=== PATIENT | male | born 1980 | race Two or more races ===

== ENCOUNTER 2025-04-20 00:58 | Emergency (ER) | payer MEDICAID, SELFPAY ==
[2025-04-20 00:59] VITALS: BMI 28.7
--- NOTE | 2025-04-20 01:05 | EKG_ITS ---
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
[2025-04-20 01:22] VITALS: BP 148/82; PULSE 65; RESP 22; TEMP 36.3; O2SAT 96
--- NOTE | 2025-04-20 01:51 | EDNOTE_ITS ---
ED Abdominal Pain RME/HPI General Chief Complaint: Abdominal Pain Stated complaint: I THINK I HAVE HEARTBURN Time seen by provider: 04/20/25 01:55 Arrival date/time: 04/20/25 00:58 RME / HPI RME / HPI narrative: See MDM for Dr. Mccall's HPI Documentation. Related Data Allergies Allergy/AdvReac Type Severity Reaction Status Date / Time No Known Allergies Allergy Mild Uncoded 10/04/07 20:37 Review of Systems Review of Systems Systems Reviewed: All systems reviewed, normal except as documented Past Medical History Social History SMOKING STATUS: Current every day smoker ED Exam Narrative Physical exam: See MDM for Dr. Mccall's Physical Exam Documentation. Course Quality Measures none Orders Category Date Time Status CT Screening NOW Care 04/20/25 01:57 Active EKG (ED ONLY) *Do not use* NOW Care 04/20/25 01:05 Completed Saline [Insert IV] NOW Care 04/20/25 01:[address] chest abdomen pelvis wo Stat Exams 04/20/25 03:30 Taken EKG (ED Only) Stat Exams 04/20/25 01:05 Draft US gall bladder Stat Exams 04/20/25 01:57 Taken XR chest 1V portable Stat Exams 04/20/25 01:57 Taken Alcohol, Blood Medical Stat Lab 04/20/25 02:23 Completed Amylase Stat Lab 04/20/25 02:23 Completed BNP [B-Type Natriuretic Peptide] Stat Lab 04/20/25 02:23 Completed Bilirubin,Direct Stat Lab 04/20/25 02:23 Completed CBC Stat Lab 04/20/25 02:23 Completed CK [Creatine Kinase] Stat Lab 04/20/25 02:23 Completed CMP [Comprehensive Metabolic Panel] Stat Lab 04/20/25 02:23 Completed CRP [C-Reactive Protein] Stat Lab 04/20/25 02:23 Completed D-Dimer Stat Lab 04/20/25 02:23 Completed Drug Screen,Urine Stat Lab 04/20/25 01:58 Ordered ESR [Sed Rate (ESR)] Stat Lab 04/20/25 02:23 Completed Hemoglobin A1C [Glycohemoglobin w (eAG)] Stat Lab 04/20/25 02:23 Completed Lipase Stat Lab 04/20/25 02:23 Completed Magnesium Stat Lab 04/20/25 02:23 Completed Procalcitonin Stat Lab 04/20/25 02:23 Completed TSH [Thyroid Stimulating Hormone] Stat Lab 04/20/25 02:23 Completed Troponin I Stat Lab 04/20/25 02:23 Completed UA, C/S IF [Urinalysis, C/S if Indicated] Stat Lab 04/20/25 01:58 Ordered Famotidine Inj [Pepcid Inj] Med 04/20/25 01:56 Discontinued 20 mg IVP X1 ONE HYDROmorphone INJ [Dilaudid Inj] Med 04/20/25 01:56 Discontinued 1 mg IVP X1 ONE Ketorolac Inj [Toradol Inj] Med 04/20/25 01:56 Discontinued 30 mg IVP X1 ONE Ondansetron Inj [Zofran Inj] Med 04/20/25 01:56 Discontinued 4 mg IVP X1 ONE Pantoprazole Inj [Protonix Inj] Med 04/20/25 01:56 Discontinued 40 mg IVP X1 ONE Sodium Chloride 0.9% 1000 ml [Ns] 1,000 ml Med 04/20/25 01:56 Discontinued IV 999 mls/hr Vital Signs Vital signs: Vital Signs Temperature 97.4 F 04/20/25 01:22 Pulse Rate 65 04/20/25 01:22 Respiratory Rate 22 H 04/20/25 01:22 Blood Pressure 148/82 H 04/20/25 01:22 Pulse Oximetry (%) 96 04/20/25 01:22 Oxygen Delivery Method Room Air 04/20/25 01:22 Abdominal Pain MDM MDM Narrative MDM Narrative:: This section includes all my notes and documentations, including HPI, PE, and ED course. Josiah Mccall MD HPI: 45 y/o male here with severe upper abdominal pain x 3 hours. With severe nausea. Pain radiates into the chest. Feels short of breath. Has HIV. No fever. No urinary symptoms. No other complaints. ROS: All negative except as documented in HPI. Physical Exam: General: Alert and oriented. In severe pain. Eyes: Conjunctivae and lids clear. ENT: No nasal congestion. Neck: Supple. Heart: RRR. Lungs: No respiratory distress. Good air movement. No rhonchi, wheezing, rales. Abdomen: Soft with severe tenderness, difficult to localize. Normal bowel sounds. No distension. No rebound or guarding. Back: No CVA tenderness. Skin: Warm and dry. Neuro: Alert and oriented X 3. I ordered IVF, Zofran 4 mg IV, Toradol 30 mg IV, Dilaudid 1 mg IV, famotidine 20 mg IV, Protonix 40 mg IV, and diagnostic tests. At 0600 on 04/20/2025, the care of the patient was transferred to Dr. Rosas. Josiah Mccall MD Patient data External records reviewed:: [facility] previous records (No prior ED records available for review) Clinical information provided by:: patient Social determinants that could affect healthcare access:: none Patient has the following chronic illnesses:: None reported How is presenting disease/condition affected by chronic disease/condition?: no chronic disease Evaluation data The following diagnostics were reviewed and interpreted by me:: lab results, radiology exam(s) and EKG tracing(s) (My interpretation of the EKG is: Sinus rhythm (65 bpm) with nonspecific ST-T changes. Josiah Mccall MD) Lab and/or radiology exams considered but not ordered:: None Interpretation Summary: Complete diagnostic tests are pending. Medications / Prescriptions Medications or Prescriptions considered but not ordered:: None Medication administrations:: Medication Administration History Discontinued Medications Famotidine (Famotidine Inj 10 Mg/Ml Vial 2 Ml) 20 mg IVP X1 ONE Stop: 04/20/25 01:57 Last Admin: 04/20/25 03:47 Dose: 20 mg Documented By: CVL Hydromorphone HCl (Hydromorphone Inj 2 Mg/Ml Vial) 1 mg IVP X1 ONE Stop: 04/20/25 01:57 Sodium Chloride (Ns) 1,000 mls @ 999 mls/hr IV .Q1H1M ONE Stop: 04/20/25 02:56 Last Infusion: 04/20/25 04:46 Dose: Infused Documented By: Admin: 04/20/25 03:44 Dose: 999 mls/hr Documented By: CVL Ketorolac Tromethamine (Ketorolac Inj 30 Mg/Ml Vial) 30 mg IVP X1 ONE Stop: 04/20/25 01:57 Last Admin: 04/20/25 03:45 Dose: 30 mg Documented By: CVL Ondansetron HCl (Ondansetron Inj 2 Mg/Ml Inj 2 Ml) 4 mg IVP X1 ONE; Protocol Stop: 04/20/25 01:57 Last Admin: 04/20/25 03:46 Dose: 4 mg Documented By: CVL Pantoprazole Sodium (Pantoprazole Inj 40 Mg Vial) 40 mg IVP X1 ONE Stop: 04/20/25 01:57 Last Admin: 04/20/25 03:48 Dose: 40 mg Documented By: CVL I ordered IVF, Zofran 4 mg IV, Toradol 30 mg IV, Dilaudid 1 mg IV, famotidine 20 mg IV, Protonix 40 mg IV, and diagnostic tests. Consultations Consultation(s) initiated? (list below): No Diagnosis Differential diagnosis abdominal pain: acute appendicitis, calculus of kidney, constipation, diverticulitis, gastroenteritis, pancreatitis, small bowel obstruction and other (GERD, PUD, gastritis, biliary colic) Most likely diagnosis given after review of the tests above:: Complete diagnostic tests are pending. Admission Indicated Admission indicated?: not indicated Explain why admission is indicated or not indicated:: Complete diagnostic tests are pending. Admission Request Was there a request for admission?: No Disposition Plan Disposition Plan: other (specify) (At 0600 on 04/20/2025, the care of the patient was transferred to Dr. Rosas.) Discharge Plan Prescriptions/Referrals Referrals: Sherly High FNP [Primary Care Provider] - In 1 week Problem List Clinical Impression: Abdominal pain Patient/Caregiver Discharge Instructions Print Language: Maltese
--- NOTE | 2025-04-20 01:57 | XR_ITS ---
PA upright chest film on 04/20/2025 at 1:58 a.m. Comparison study 07/16/2004. CLINICAL INDICATION: Shortness of breath severe upper abdominal pain for 3 hours FINDINGS: The heart mediastinum lungs and pleural spaces all appear clear and normal. IMPRESSION: Normal chest
--- NOTE | 2025-04-20 01:57 | XR_ITS ---
Examination: Sonogram, Limited, attention to the gallbladder CLINICAL HISTORY: Right upper quadrant pain nausea and vomiting Date and time of exam: 04/2025 at 2:11 a.m. Technique: Real-time de la garza scale transabdominal sonographic images of the upper abdomen obtained. Findings: The gallbladder is filled with echogenic gallstones which create distal acoustic shadowing. The gallbladder wall appears essentially normal. No focal abnormalities are seen in the liver or anywhere. There is definite diffuse increased echogenicity in the liver indicating fatty infiltration the common bile duct is normal in size measuring 0.6 cm in diameter. Portal vein is normal in size and there is normal directional color flow vascularity in the portal vein. The liver is not enlarged. The area of the pancreas is obscured by bowel gas. The hepatic veins appear normal no ascites is seen. IMPRESSION: 1. The gallbladder is filled with echogenic gallstones. The gallbladder wall appears normal. The cystic duct is not dilated, it has a normal caliber 2. Diffuse significant fatty infiltration in the liver. 3 no other abnormalities are seen.
[2025-04-20 02:42] LABS: Sed Rate (ESR) 48 mm/hr (0-15)
[2025-04-20 02:44] LABS: Basophils # (Auto) 0.0 Thou/mm3 (0.0-0.2); Basophils % (Auto) 1 % (0-2.5); Eosinophils # (Auto) 0.1 Thou/mm3 (0.0-0.5); Eosinophils % (Auto) 2 % (0-10); Hematocrit 38.4 % (41.0-53.0); Hemoglobin 13.3 g/dL (13.5-16.0); Immature Granulocytes Auto 0.05 Thou/mm3 (0.00-0.00); Lymphocytes # (Auto) 1.1 Thou/mm3 (1.0-4.8); Lymphocytes % (Auto) 17 % (10-50); Mean Corpuscular HGB Conc 34.6 g/dl (31.0-37.0); Mean Corpuscular Hemoglobin 33.3 pg (25.0-35.0); Mean Corpuscular Volume 96 fL (80-100); Monocytes # (Auto) 0.6 Thou/mm3 (0.0-0.8); Monocytes % (Auto) 10 % (0-12); Neutrophils # (Auto) 4.3 Thou/mm3 (1.8-7.7); Neutrophils % (Auto) 70 % (37-80); Nucleated Red Blood Cell # 0.00 Thou/mm3 (0.00-0.00); Nucleated Red Blood Cell % 0 /100 WBC (0); Platelet Count 196 Thou/mm3 (140-440); RDW Standard Deviation 50.6 fL (35.1-43.9); Red Blood Count 3.99 Miln/mm3 (4.50-5.90); White Blood Count 6.2 Thou/mm3 (3.8-10.6)
[2025-04-20 02:57] LABS: B-Type Natriuretic Peptide < 20 pg/mL (0-100)
[2025-04-20 03:03] LABS: D-Dimer 492 ng/mL (<600)
[2025-04-20 03:07] LABS: Glucose Estimated Average 111 mg/dL (80-131); Hemoglobin A1C 5.5 % Hgb (4.8-6.0)
[2025-04-20 03:16] LABS: Alanine Aminotransferase 17 U/L (10-49); Albumin, Serum 4.1 gm/dL (3.5-5.0); Albumin/Globulin Ratio 1.0 (1.2-2.2); Alcohol, Blood Medical < 3.0 mg/dL (0-10.0); Alkaline Phosphatase 93 U/L (46-116); Amylase 119 U/L (30-118); Anion Gap 11 (7-16); Aspartate Amino Transferase 22 U/L (0-34); BUN/Creatinine Ratio 13 Ratio (12-20); Bilirubin,Direct < 0.1 mg/dL (0.0-0.3); Bilirubin,Total 0.3 mg/dL (0.3-1.2); Blood Urea Nitrogen 23 mg/dL (9-23); C-Reactive Protein < 0.5 mg/dL (0.0-0.9); Calcium 9.1 mg/dL (8.3-10.6); Calcium (Corrected) 9.1 mg/dL (8.5-10.1); Carbon Dioxide 21.7 mMol/L (20.0-31.0); Chloride 106 mMol/L (98-107); Creatine Kinase 268 U/L (34-171); Creatinine (Component) 1.8 mg/dL (0.6-1.3); Estimated Creatinine Clearance 59.9 mL/min (>60); Globulin 4.0 gm/dL (2.3-3.5); Glucose 121 mg/dL (74-106); Lipase 66 U/L (12-53); Magnesium 1.6 mg/dL (1.6-2.6); Osmolality,Calculated 282 (275-295); Potassium 4.0 mMol/L (3.4-5.1); Procalcitonin 0.14 ng/ml (0.0-0.49); Sodium 139 mMol/L (136-145); Thyroid Stimulating Hormone 2.08 uIU/mL (0.55-4.78); Total Protein 8.1 gm/dL (5.7-8.2); Troponin I < 0.002 ng/mL (0.0-0.045); eGFR 47 See Note
--- NOTE | 2025-04-20 03:27 | PRELIM_ITS ---
Gallbladder ultrasound. April 20, 2025 0211 hours Clinical history: RUQ tenderness Comparison: No prior study is available for comparison. Findings: There is fatty liver. No focal hepatic mass or intrahepatic biliary ductal dilatation is demonstrated. The gallbladder contains multiple calculi. The gallbladder wall is borderline thickened measuring 3 mm. No pericholecystic fluid is seen. The common bile duct is upper normal in caliber measuring 6 mm. The pancreas is not visualized due to overlying bowel gas. Hepatopetal flow is demonstrated in the main portal vein. The IVC is patent. No free intraperitoneal fluid is identified. Impression Acute calculus cholecystitis. Fatty liver. Common bile duct measuring 6 mm, upper normal in size. Recommend correlation with bilirubin levels. Report Electronically Signed By: Dann Muñoz 04/20/2025 3:26:30 AM [EST]
--- NOTE | 2025-04-20 03:30 | XR_ITS ---
Examination: CT chest, without intravenous contrast. CT abdomen, without intravenous contrast. CT pelvis, without intravenous contrast. 2-D sagittal and coronal reconstructions. 3-D reconstructions. Date and time of exam: April 20, 2025, 0409 hours INDICATIONS: Epigastric pain chest and abdominal pain heartburn today CTDI vol (mgy) 9.68 DLP (MGycm) 751 Technique: Multiple CT images, 3.0 mm slice thickness, obtained chest, abdomen, pelvis, with the high-resolution 64 slice scanner.. Sagittal and coronal 2-D reconstructions are obtained. 3-D reconstructions Low dose protocols were performed. One or more of the following dose reduction techniques were used; automated exposure control, adjustment of the mA and/or KV according to patient size, use of iterative reconstruction technique. Findings: No thoracic aortic aneurysmal dilatation Pulmonary artery segments are not enlarged No mediastinal lymphadenopathy No pneumonia pulmonary edema or pleural disease Mild thickening of the lower wall of the esophagus No visualized liver or splenic lesion Multiple gallstones No pancreatic or adrenal mass No renal or ureteral calculi, no hydronephrosis Normal appendix No bowel obstruction No diverticulitis Normal seminal vesicles No prostatomegaly Mild thickening urinary bladder wall Intact osseous structures IMPRESSION: Mild thickening lower wall of the esophagus, consider reflux esophagitis, suggest elective standard fluoroscopically-guided esophagram follow-up Cholelithiasis, no definite cholecystitis Normal appendix No renal or ureteral calculi, no hydronephrosis Cystitis pattern
[2025-04-20] MEDS: SODIUM CHLORIDE 0.9% 1000 ML 1,000 ML 999 ML IV (03:44)
[2025-04-20] MEDS: KETOROLAC INJ 30 MG/ML VIAL IVP (03:45)
[2025-04-20] MEDS: ONDANSETRON INJ 2 MG/ML INJ 2 ML 4 MG IVP (03:46)
[2025-04-20] MEDS: FAMOTIDINE INJ 10 MG/ML VIAL 2 ML 20 MG IVP (03:47)
--- NOTE | 2025-04-20 05:41 | PRELIM_ITS ---
CT scan of the chest, abdomen and pelvis without intravenous contrast (axial sections with sagittal and coronal reformats) April 20, 2025 0409 hours Clinical History: Chest/abdominal pain Comparison: No prior study is available for comparison. Findings: The evaluation is limited by respiratory motion. Bilateral lower lobe atelectasis. There is no pleural effusion or pneumothorax. The aorta is unremarkable on this noncontrast study. No evidence of mediastinal mass or lymphadenopathy. There is no pericardial effusion. Fatty infiltration of the liver is noted. Borderline splenomegaly. Multiple rim calcified calculi are noted within the gallbladder, without evidence of gallbladder wall thickening or pericholecystic fluid. The pancreas, adrenals and kidneys are unremarkable on this noncontrast study. There are occasional colonic diverticula without evid ence of diverticulitis. No evidence of bowel obstruction. The appendix is within normal limits (coronal images 65-78/155). The urinary bladder is incompletely distended at the time of the examination and appears mildly thick-walled. In the appropriate clinical setting, the possibility of cystitis cannot be excluded. There is no free fluid or free air. The prostate gland is unremarkable. Mild degenerative changes are identified in the spine. There is minimal retrolisthesis of L3 on L4. Impression: 1. Cholelithiasis without evidence of acute cholecystitis. 2. Borderline splenomegaly. 3. Possible cystitis. Other findings as described above. Report Electronically Signed By: Paula Joyce 04/20/2025 5:40:15 AM [EST]
[2025-04-20 06:02] VITALS: BP 146/114; PULSE 71; RESP 16; O2SAT 100
[2025-04-20] MEDS: HYDROmorphone INJ 2 MG/ML VIAL 1 MG IVP (06:08)
--- NOTE | 2025-04-20 07:04 | PC.NURSE ---
Pt. here from home to room 17, pt. states he has mid upper abdominal pain, he states that is what brought him in to the hospital, pt. states he forced himself to vomit to feel better but pt. states it didn't help. Pt. states at this time his pain is half then when he came in. Pt. was resting with his eyes closed. No s/s of distress at this time. Pt. states he is unable to urinate at this time he states.
[2025-04-20 07:14] VITALS: BP 153/102; PULSE 96; RESP 17; TEMP 37.1; O2SAT 100
--- NOTE | 2025-04-20 09:17 | PD.EDADDENDU ---
Emergency Room Addendum Addendum Narrative: 0600: Care assumed from Dr. Mccall, the previous shift emergency physician. Past medical, surgical, social and family history reviewed. Vitals and home medications reviewed. I will assume the care of the patient at this time, pending labs and final disposition. Please refer to the emergency department record for history and examination from initial visit.?The following addendum documentation note is intended to reflect any pending information, findings, or radiology results not included in the patient?s initial chart. I reviewed todays labs and imaging results. No elevated white count. Creatinine is 1.8, eGFR is 47, lipase is 66, no prior labs for comparison. CT chest/abdomen/pelvis shows Mild thickening lower wall of the esophagus, consider reflux esophagitis and cholelithiasis. On reassessment, the patient reports feeling improved. We reviewed all the results, analysis, and treatment plans. Patient is amenable to discharge. Strict return precautions were outlined.
[2025-04-20 09:25] LABS: Collection Type, Urine Clean Catch
[2025-04-20 09:33] LABS: Bacteria,Urine 4+; Bilirubin,Urine Negative (Negative); Blood,Urine Negative (Negative); Color,Urine Yellow (Lt Yel-Yel); Glucose, Urine Negative (Negative); Hyaline Casts,Urine 1 /hpf (0-1); Ketones,Urine Negative (Negative); Leukocyte Esterase,Urine Negative (Negative); Nitrite,Urine Negative (Negative); PH,Urine 6.0 (5.0-7.0); Protein,Urine 2+ (Neg - Trace); RBC,Urine 6 /hpf (0-3); Specific Gravity,Urine 1.024 (1.001-1.035); Squamous Epithelial Cell,Urine < 1 /hpf (0-5); Urobilinogen,Urine Negative mg/dL (0.0-1.0); WBC,Urine 8 /hpf (0-5)
[2025-04-20 09:49] LABS: Amphetamine/Methamp Scrn,U Positive (Negative); Barbiturate Screen,Urine Negative (Negative); Benzodiazepines Screen,Urine Negative (Negative); Benzoylecgonine Screen, Ur Negative (Negative); Fentanyl Screen,Urine Negative (Negative); Opiate Screen,Urine Positive (Negative); THC Screen,Urine Negative (Negative)
[2025-04-20 10:12] VITALS: BP 138/102; PULSE 98; RESP 18; TEMP 36.7; O2SAT 100
[2025-04-20 10:30] LABS: Clarity,Urine Hazy (Clear/Hazy); Culture Indicated,Urine Yes
[2025-04-20 10:47] VITALS: BP 129/95; PULSE 94; RESP 17; TEMP 36.6; O2SAT 98
== END 2025-04-20 10:49 | disposition home or self-care (01) ==
PROVIDERS: Emergency Medicine; Emergency Provider Family Medicine; PCP Nurse Practitioner Family
DX: K22.89 Other specified disease of esophagus (principal); K80.20 Calculus of gallbladder without cholecystitis without obstruction; R06.02 Shortness of breath; R94.31 Abnormal electrocardiogram [ECG] [EKG]; Z21 Asymptomatic human immunodeficiency virus [HIV] infection status
CPT/HCPCS: 36415; 71045; 71250; 74176; 76705; 80053; 80307; 80320; 81001; 82150; 82248; 82550; 83036; 83690; 83735; 83880; 84145; 84443; 84484; 85025; 85379; 85652; 86140; 87077; 87086; 87186; 93005; 96361; 96374; 96375; 99284; J1171; J1885; J2405; J2470; J3490; J7030; G0480